=== PATIENT | male | born 1980 | race American Indian/Alaskan Native ===

== ENCOUNTER 2016-10-03 17:40 | Emergency (ER) | payer BC ==
--- NOTE | 2016-10-03 18:50 | XRay Report ---
FINAL REPORT EXAM: XR FINGER(S) 2+V LT HISTORY: injury,r/o fx LT 5TH DIGIT. TECHNIQUE: Single view left hand with 2 additional views of the small finger. PRIORS: None. FINDINGS: Bone mineralization appears within normal limits. There is a fracture of the proximal portion of the proximal 5th phalanx. There is slight medial displacement. There appears to be slight posterior angulation, but the lateral view is obscured by overlying 2nd, 3rd and 4th phalanges. Soft tissue swelling is noted. IMPRESSION: 1. Limited study. 2. Proximal 5th phalanx fracture.
[2016-10-03] MEDS ORDERED: PERCOCET 5/325 PO ONE (21:06)
[2016-10-03] MEDS ORDERED: ANCEF IM ONE (21:06)
--- NOTE | 2016-10-03 22:02 | Emergency Department Report ---
Entered by DANG MATHIS, acting as scribe for RONALDO RIVERO PA. Upper Extremity - HPI Chief Complaint: Extremity Injury, Upper Stated Complaint: LEFT LITTLE FINGER INJURY Time Seen by Provider: 10/03/16 20:47 Upper Extremity: Left Little Finger (left 5th hand digit) Occurred When: Today Mechanism: Fall Severity: severe (7 out of 10) Symptoms: Yes Pain with Movement (fifth digit, left), Yes Limited Range of Movement (with pain left 5th didgit), Yes Swelling (left 5th finger), Yes Laceration or Abrasion (left 5th digit), No Deformity, No Numbness, No Weakness , No Bruising/Ecchymosis Other History: ER report that he injured is left fifth finger while playing soccer he said he fell and injured his finger. He reports that the bone was sticking out and he put it back in place. Reports pain in another 10 that saw Mariely. Denies any numbness or tingling. Pain is localized to left small finger. Denies any radiating pain to hand wrist or forearm. A peng also report bleed and an open wound to area where the bone was thicken up. He reports that his tetanus shot is up-to-date. Patient is right handed. He said he put Band-Aid on finger after he pushed the bone back in. ED Review of Systems ROS: Stated complaint: LEFT LITTLE FINGER INJURY Other details as noted in HPI Comment: All other systems reviewed and negative Constitutional: denies: chills, fever, weakness Respiratory: no symptoms reported Cardiovascular: denies: chest pain, palpitations, edema, syncope Gastrointestinal: denies: abdominal pain, nausea, vomiting, diarrhea, constipation Musculoskeletal: joint swelling, arthralgia. denies: back pain, myalgia Skin: other (open wound left fifth finger). denies: rash, lesions Neurological: denies: headache, weakness, numbness, paresthesias Other: 36 year old male presents to ED with c/o injury to left 5th digit around 1700 today. Patient states he was playing soccer when he slipped and fell on his pinky. Patient rates pain 10/10 in severity. Patient states she witnessed his bone protruding, but no deformity present. Patient reports laceration but denies LOC, head injury/trauma, headache, weakness, numbness or tingling. Patient tetanus shot is UTD. ED Past Medical Hx - Past Medical History Previous Medical History?: No - Surgical History Past Surgical History?: No - Family History Family history: hypertension - Social History Smoking Status: Never Smoker Substance Use Type: None - Medications Home Medications: Home Medications Medication Instructions Recorded Confirmed Last Taken Type Cephalexin [Keflex] 500 mg PO Q8HR #30 cap 10/03/16 Unknown Rx HYDROcodone/APAP 5-325 [[place] 1 each PO Q6HR PRN #15 tablet 10/03/16 Unknown Rx 5/325] Ibuprofen [Motrin] 600 mg PO Q8H PRN #15 tablet 10/03/16 Unknown Rx Upper Extremity Exam - Exam General: Vital signs noted. No distress. Alert and acting appropriately. This is a 36-year-old male well-nourished well-developed in no acute distress Head and Torso: No HEENT Abnormality (normal exam), No Neck Tenderness (normal exam), No Chest/Lungs Abnormality (normal exam), No Abdominal Tenderness ( normal exam), No Back Tenderness (GENERAL: []) Shoulder Exam: Yes Normal Range of Motion in Shoulder (full range of motion), No Shoulder Tenderness, No Clavicle Tenderness, No Shoulder Deformity, No AC Joint Tenderness Arm Exam: No Arm/Humerus Tenderness, No Arm Deformity Elbow: Yes Normal Range of Motion in Elbow (full range of motion), No Elbow Tenderness, No Elbow Deformity Forearm: No Forearm Tenderness, No Forearm Deformity, No Pain with Pronation, No Pain with Supination Wrist: Yes Normal ROM in Wrist, No Wrist Tenderness, No Wrist Deformity, No Snuffbox Tenderness, No Pain with Axial Thumb Compression Hand: Yes Digit Tenderness (left 5th proximal phalanx injury limited ), Yes Digit(s) Deformity (left fifth digit), No Hand Tenderness, No Hand Deformity, No Normal ROM in Digit(s) (limited ROM due to pain fifth digit), No Tendon Dysfunction CMS Exam: Yes Broken Skin (.25 laceration which is irregular located laterally and dorsally to proximal digit with active bleeding), Yes Normal Distal Pulses, Yes Normal Capillary Refill (less than 3 sec), Yes Normal Distal Sensation ED Course Vital Signs 10/03/16 17:51 Temperature 97.7 F Pulse Rate 78 Respiratory 16 Rate Blood Pressure 110/64 O2 Sat by Pulse 100 Oximetry - Reevaluation(s) Reevaluation #1: 10/03/16 21:[address] Meraz who is the orthopedic surgeon on-call and I discuss x-ray with him. He agrees that the wound needs to stay open and agree with treatment plan Patient given Percocet 5/325 mg 2 tablets in the emergency room for left fifth finger pain and also Ancef 1 g IM to cover open fracture to left fifth digit. Area soaked with iodine and peroxide mixed with saline. Irrigated with 250 mL of normal saline. Sterile dry dressing placed the site. Along with metal finger splint. - Orthopedic Splinting/Casting Injury #1 Side: left Upper Extremity Injury Location: finger Upper Extremity Immobilizer: aluminum form splint Additional Comments: Left fifth digit wound irrigated, soaked and irrigated. Nonadhesive dressing placed followed by metal splint for open fracture along with cold band dressing. Neurovascular check status post splint placement. Patient with normal color, movement, sensation and temperature 2 fingers of left hand. ED Medical Decision Making - Radiology Data Radiology results: report reviewed X-ray of left fifth digit reveals proximal fifth phalanx fracture. There is a fracture of the proximal portion of the fifth phalanx. There is slight medial displacement. There appears to be slight posterior angulation. Soft tissue swelling is noted. - Medical Decision Making ED Course: Status post left fifth finger fracture with open wound. Open fracture with some displacement to his fifth proximal phalanx on the left hand. Spoke with Dr. Meraz was the orthopedic doctor and gave him results of x-ray and also he agrees with treatment plan with Ancef, dressing and splint placement and to follow-up in office tomorrow. She was given Ancef 1 g IM in emergency room without any adverse reaction. He was given Percocet 5/325 mg 2 tablets by mouth in emergency room which covered his pain. Wound care done to open fracture. Wound irrigated, soaked and irrigated with normal saline and sterile non-adhesive dressing placed inside. Patient with normal neurovascular status status post splint placement. Patient voices understanding of diagnosis and treatment plan and the need to follow-up with orthopedic doctor. Tetanus vaccine is up-to-date. Diagnostics/labs: Patient with minimally displaced fracture to proximal left fifth digits. Assessment/plan 1. Open fracture proximal left fifth digit 2. Laceration proximal left fifth digit-laceration left open due to fracture. Wound care done 3. Fall with left fifth digit injury. 4. Pain left fifth finger Patient discharged home in stable condition with his family member with prescription for [place], Motrin and Keflex and to follow-up with orthopedic doctor in 1-2 days. Critical care attestation.: If time is entered above; I have spent that time in minutes in the direct care of this critically ill patient, excluding procedure time. ED Disposition Clinical Impression: Finger pain, left Open fracture of finger of left hand Qualifiers: Encounter type: initial encounter Finger: little finger Phalanx: proximal Fracture alignment: displaced Qualified Code(s): S62.617B - Displaced fracture of proximal phalanx of left little finger, initial encounter for open fracture Fall, accidental Qualifiers: Encounter type: initial encounter Qualified Code(s): W19.XXXA - Unspecified fall, initial encounter Laceration of left little finger w/o foreign body w/o damage to nail Qualifiers: Encounter type: initial encounter Qualified Code(s): S61.217A - Laceration without foreign body of left little finger without damage to nail, initial encounter Disposition: TO HOME OR SELFCARE Is pt being admited?: No Does the pt Need Aspirin: No Condition: Stable Instructions: Finger Laceration (ED), Finger Fracture (ED), Arthralgia (ED), Acute Wound Care (ED), Splint Care (ED) Additional Instructions: Please follow up with the orthopedic doctor in 1-2 days. Please take antibiotic as prescribed to prevent infection Do not drive or operate heavy machinery while taking and [place] as this medication will cause drowsiness Please keep splint on until you're seen by orthopedic doctor Prescriptions: Cephalexin [Keflex] 500 mg PO Q8HR #30 cap HYDROcodone/APAP 5-325 [[place] 5/325] 1 each PO Q6HR PRN #15 tablet PRN Reason: Pain Ibuprofen [Motrin] 600 mg PO Q8H PRN #15 tablet PRN Reason: Pain Referrals: ZHANE MERAZ MD [Staff Physician] - 10/04/16 Forms: Accompanied Note, Work/School Release Form(ED) This documentation as recorded by the DEL schreiber PEARL,accurately reflects the service I personally performed and the decisions made by ,RONALDO RIVERO PA.
[2016-10-03 23:05] VITALS: BP 112/75
== END 2016-10-03 22:10 | disposition home or self-care (01) ==
LOC: ED 17:40
DX: S62.617B Displaced fracture of proximal phalanx of left little finger, initial encounter for open fracture (principal); W18.30XA Fall on same level, unspecified, initial encounter; Y93.66 Activity, soccer; Y92.89 Other specified places as the place of occurrence of the external cause; Y99.8 Other external cause status
CPT/HCPCS: 29130; 73140; 96372; 99283; J0690

== ENCOUNTER 2016-10-07 07:49 | Day surgery (SDC) | payer BC ==
--- NOTE | 2016-10-06 17:56 | History and Physical Report ---
History of Present Illness Date of examination: 10/06/16 Chief complaint: Left little finger pain and deformity History of present illness: 36-year-old male who sustained a displaced fracture at the base of the proximal phalanx left fifth finger. This injury occurred approximately 4 days ago while playing soccer patient states he fell directly onto the hand and noticed an obvious deformity which he quickly reduced on his own and presented to the emergency room afterwards. Medications and Allergies Allergies Allergy/AdvReac Type Severity Reaction Status Date / Time No Known Allergies Allergy Unverified 10/03/16 17:54 Home Medications Medication Instructions Recorded Confirmed Last Taken Type Cephalexin [Keflex] 500 mg PO Q8HR #30 cap 10/03/16 10/06/16 Unknown Rx HYDROcodone/APAP 5-325 [[place] 1 each PO Q6HR PRN #15 tablet 10/03/16 10/06/16 Unknown Rx 5/325] Ibuprofen [Motrin] 600 mg PO Q8H PRN #15 tablet 10/03/16 10/06/16 Unknown Rx Physical Examination - Physical exam Narrative exam: Significant musculoskeletal exam relates to the left hand. He was noted to have moderate swelling with decreased active range of motion at the MCP and PIP joints also there was some rotational malalignment at the fingertip compared to the other digits of the left hand Eyes: PERRL ENT: Positive: clear oral mucosa Respiratory effort: normal Respiratory: bilateral: CTA Rhythm: regular Heart Sounds: Positive: S1 & S2 General gastrointestinal: Positive: soft, non-tender, non-distended, normal bowel sounds Integumentary: clear, warm, dry Neurologic: Positive: CNII-XII intact, moves all extremities, gait normal. Negative: focal deficits - Cervical Spine Neck pain: none Tenderness with palpation: none Full ROM: yes ROM: flexion: normal ROM: extension: normal ROM: rotation right: normal ROM: rotation left: normal ROM: lateral flexion right: normal ROM: lateral flexion left: normal - Lumbar Spine Back pain: none Tenderness with palpation: none Appearance: normal Full ROM: yes ROM: flexion: normal ROM: extension: normal ROM: rotation right: normal ROM: rotation left: normal ROM: lateral flexion right: normal ROM: lateral flexion left: normal Results - Labs Labs: All other labs normal. Assessment and Plan Assessment- displaced fracture proximal phalanx left fifth finger Plan - he will require open reduction and internal fixation of the proximal phalanx
--- NOTE | 2016-10-07 08:36 | Anesthesia Consultation ---
Anesthesia Consult and Med Hx Date of service: 10/07/16 - Airway Anesthetic Teeth Evaluation: Good ROM Head & Neck: Adequate Mental/Hyoid Distance: Adequate Mallampati Class: Class I Intubation Access Assessment: Good - Pulmonary Exam CTA: Yes - Cardiac Exam Cardiac Exam: RRR - Pre-Operative Health Status ASA Pre-Surgery Classification: ASA1 Nerve Block: supraclavicular - Pre-Anesthesia Comment Pre-Anesthesia Comments: Pt request block without sedation for surgery
--- NOTE | 2016-10-07 08:37 | Anesthesia Day of Surgery ---
Anesthesia Day of Surgery - Day of Surgery Patient Examined: Yes Patient H&P Reviewed: Yes Patient is NPO: Yes
[2016-10-07] MEDS ORDERED: NACL 0.9% 1000 ML 1,000 ML IV SCH (09:00)
[2016-10-07] MEDS ORDERED: ANCEF/STERILE WATER 2 GM/20 ML IV NR (09:00)
[2016-10-07] MEDS ORDERED: VERSED IV NR (09:00)
[2016-10-07] MEDS ORDERED: SUBLIMAZE IV ONE (09:00)
[2016-10-07] MEDS ORDERED: XYLOCAINE 1% 20 mL ONE (09:27)
[2016-10-07] MEDS ORDERED: MARCAINE-EPI 0.5%-1:200,000 INFILTRATI ONE (09:27)
[2016-10-07] MEDS ORDERED: DIPRIVAN 10 MG/ML IV ONE (09:50)
[2016-10-07] MEDS ORDERED: XYLOCAINE MPF 2% ONE (09:51)
[2016-10-07] MEDS ORDERED: DILAUDID ONE (09:51)
[2016-10-07] MEDS ORDERED: TORADOL ONE (10:00)
--- NOTE | 2016-10-07 12:54 | Procedure Note ---
Date of procedure: 10/07/16 Pre-op diagnosis: displaced proximal phalanx left fifth finger Post-op diagnosis: same Procedure: Procedure Open reduction internal fixation left fifth finger proximal phalanx Indications 36-year-old male who sustained a displaced fracture of the proximal phalanx as a result of an injury while playing soccer Procedure: The patient was given a scalene nerve block in preop holding and He was transferred to the operating room where he was placed on the OR table in a supine position the left upper extremity was then prepped and draped in the usual sterile manner a timeout procedure was done to identify the patient and the proper operative site. Next the arm was exsanguinated followed by inflation of the pneumatic tourniquet to 250 mmHg. A dorsal incision was made over the proximal phalanx assistant golf professional taken down sharply through skin and subcutaneous the extensor tendon was identified and was incised longitudinally which brought us down to the fracture site using combination of #15 blade and periosteal elevators the fracture site was identified and was then manipulated into a reduced position. Next a small non-threaded K wire was used to maintain reduction this was followed by application of a 8 hole T-type lock plate to the proximal phalanx using a combination of 1.2 mm screws of various lengths to secure the plate to the bone C-arm fluoroscopy was used to navigate insertion of our screws and AP and lateral view was obtained and showed good reduction of the fracture and placement of the hardware next the wound was copiously irrigated the extensor tendon was repaired using 6-0 nylon followed by closure of this skin with 4-0 nylon routine postoperative dressings were applied as well as a AlumaFoam finger splint. The patient tolerated the procedure there were no complications he was sent to postanesthesia recovery in stable condition Anesthesia: regional Surgeon: ZHANE DODSON Estimated blood loss: minimal Condition: stable Disposition: PACU
--- NOTE | 2016-10-07 13:04 | Post Anesthesia Evaluation ---
- Post Anesthesia Evaluation Patient Participated: Yes Airway Patent: Yes Stable Respiratory Function: Yes Nausea/Vomiting: No Temp > 96.8F: Yes Pain Manageable: Yes Adequeate Hydration: Yes Anesthesia Complications: No Block Receding Appropriately: Not Applicable Patient on Ventilator: No
--- NOTE | 2016-10-07 13:25 | XRay Report ---
Left fifth finger: Operative views demonstrate a stabilizing hardware plate over the dorsum of the proximal fifth phalanx. There are screws fixating the smaller proximal fragment with the remaining distal bone. There is good bony alignment with only minimal separation. The MP joint is aligned. Impression: Operative fracture fixation.
[2016-10-07 13:40] VITALS: BP 113/75
== END 2016-10-07 13:40 | disposition home or self-care (01) ==
LOC: OR 07:49
PROVIDERS: ATTEND Orthopaedic Surgery
DX: S62.617A Displaced fracture of proximal phalanx of left little finger, initial encounter for closed fracture (principal); W19.XXXA Unspecified fall, initial encounter; Y93.66 Activity, soccer; Y92.89 Other specified places as the place of occurrence of the external cause; Y99.8 Other external cause status
CPT/HCPCS: 26735; 64417; 73140; C1713; J0690; J1885; J2250; J7030; J1170; J2704; J3010